=== PATIENT | female | born 1985 | race Two or more races ===

== ENCOUNTER 2018-06-26 19:21 | Emergency (ER) | payer OTHER ==
[~2018-06-26] VITALS: Ht 152.4 cm; Wt 52.2 kg
[~2018-06-26 19:21] MED LIST: PERCOGESIC 3251 EACH
== END 2018-06-26 22:45 | disposition home or self-care (01) ==
LOC: ER 19:21
DX: N30.80 Other cystitis without hematuria (principal)

== ENCOUNTER 2019-01-26 14:21 | Emergency (ER) | payer OTHER ==
[~2019-01-26] VITALS: Ht 152.4 cm; Wt 49.9 kg
== END 2019-01-26 17:16 | disposition home or self-care (01) ==
LOC: ER 14:21
DX: N39.0 Urinary tract infection, site not specified (principal)